=== PATIENT | male | born 1960 | race Caucasian/White ===

== ENCOUNTER 2019-07-02 09:18 | Day surgery (SDC) | payer OTHER ==
[~2019-07-02 09:18] MED LIST: ACETAMINOPHEN 1,000 MG/100 ML BTL IVPB ONE
[2019-07-02] MEDS ORDERED: LIDOCAINE 2% MDV (20MG/ML) 20ML VIAL IV ONE (09:19)
[2019-07-02] MEDS ORDERED: SEVOFLURANE 250 ML INH ONE (09:19)
[2019-07-02] MEDS ORDERED: KETOROLAC 30 MG/ML VIAL IVP ONE (09:19)
[2019-07-02] MEDS ORDERED: PROPOFOL 10 MG/ML VIAL IV ONE (09:19)
[2019-07-02] MEDS ORDERED: ONDANSETRON HCL IV 4 MG/2 ML VIAL IVP ONE (09:19)
[2019-07-02] MEDS ORDERED: FENTANYL PF 100MCG/2ML VIAL IV ONE (09:19)
[2019-07-02] MEDS ORDERED: MIDAZOLAM HCL 2MG/2ML VIAL IV ONE (09:19)
[2019-07-02] MEDS ORDERED: RINGERS SOLUTION,LACTATED 1,000 ML IV ONE (11:15)
[2019-07-02] MEDS ORDERED: BUPIVACAINE 0.25% W/EPI MPF 30ML VIAL SQ ONE (11:32)
[2019-07-02] MEDS ORDERED: HYDROCODONE/APAP 5/325MG TABLET PO ONE (12:35)
--- NOTE | 2019-07-03 13:10 | Operative Note ---
DATE OF SURGERY: 07/02/2019 SURGEON: Parvez Liu DO PREOPERATIVE DIAGNOSIS: Torn medial meniscus of the right knee. POSTOPERATIVE DIAGNOSES: 1. Torn medial meniscus of the right knee. 2. Medial mid patella plica, right knee. 3. 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 OPERATION: 1. Arthroscopic partial medial meniscectomy, right knee. 2. Arthroscopic resection of medial mid patella plica, right knee. 3. Arthroscopic chondroplasty of the patella and medial femoral condyle, right knee. DESCRIPTION OF PROCEDURE: This 58-year-old male was taken to the operating room and placed in the supine position on the operating room table where general anesthesia was induced. The right lower extremity was elevated, exsanguinated, and the tourniquet inflated to 300 mmHg. Arthroscopic knee sparks applied. Right knee prepped with Hibiclens and draped in the usual sterile fashion. An inferolateral portal was established for the 4 mm arthroscope, and initial evaluation of the joint demonstrated normal appearance of the suprapatellar pouch but grade 2 chondromalacia of the entire articulating surface of the patella was present. Some loose fragments of articular cartilage were present in the median ridge, and that was debrided with a rotating shaver through an inferomedial portal. The trochlea also demonstrated grade 2 changes throughout the entire articulating surface of the trochlea but it was not grossly unstable enough to further disturb. He did, however, have a very markedly thickened fibrotic medial mid patella plica, and this was resected with a rotating shaver. We then directed our attention to the medial compartment and the medial compartment demonstrated a complex tear of the posterior horn of the medial meniscus. Actually, 2 large flap tears were present. One went up behind the medial femoral condyle and the second extended out into the weightbearing surface. There was some mild fraying of the remainder of the posterior horn rim, and this was debrided with a rotating shaver. We resected the 2 flaps. The posterior root was not involved. We then probed the remainder of the medial meniscus and no further evidence of tear was identified. Grade 2 chondromalacia was, however, present throughout the entire articulating surface of the medial femoral condyle from the meniscal rest all the way as far posteriorly as could be seen, this was resected with a rotating shaver to remove any loose flaps of articular cartilage. The intracondylar notch was examined and found to be normal. The lateral compartment was entered and found to be normal with no articular cartilage lesions. Probing of the lateral meniscus did not reveal any pathology. The joint was copiously irrigated with lactated Ringer's solution and suctioned. All areas were reexamined. No additional findings were present. Joint was suctioned. The instruments were removed. The portals were infiltrated with 0.25% Marcaine with epinephrine. Because of some bleeding from the portals, we closed them with 4-0 nylon suture. Sterile dressings were applied. The patient taken to the recovery room in satisfactory condition. GROSS PATHOLOGY: This patient demonstrated grade 2 chondromalacia of the patella and trochlea and medial femoral condyle as described above. A markedly thickened and fibrotic medial mid patella plica was present. There was also a tear of the posterior horn of the medial meniscus with both flaps extending into the weightbearing surface as well as a relatively large flap flipped behind the medial femoral condyle. They were both removed and there was a small horizontal cleavage component which was resected but the root was not involved. MTDD
== END 2019-07-02 12:52 | disposition home or self-care (01) ==
LOC: SUR 09:18
PROVIDERS: ATTEND Orthopaedic Surgery
DX: S83.231A Complex tear of medial meniscus, current injury, right knee, initial encounter (principal); M67.51 Plica syndrome, right knee; M94.261 Chondromalacia, right knee; I10 Essential (primary) hypertension; E78.00 Pure hypercholesterolemia, unspecified; J45.909 Unspecified asthma, uncomplicated
CPT/HCPCS: 84132; J1885; J2405; J7120